=== PATIENT | female | born 1970 | race Caucasian/White ===

== ENCOUNTER → 2024-11-26 18:07 | Outpatient (REF) | payer OTHER, SELFPAY | LOC: WDC 18:07 | PROVIDERS: ATTENDING PHYSICIAN Advanced Practice Midwife; FAMILY PHYSICIAN Internal Medicine | DX: Z12.31 Encounter for screening mammogram for malignant neoplasm of breast (principal) | CPT/HCPCS: 77063; 77067 ==

== ENCOUNTER → 2024-12-04 10:34 | Outpatient (REF) | payer OTHER, SELFPAY | LOC: WDC 10:34 | PROVIDERS: ATTENDING PHYSICIAN Advanced Practice Midwife; FAMILY PHYSICIAN Internal Medicine | DX: R92.8 Other abnormal and inconclusive findings on diagnostic imaging of breast (principal) | CPT/HCPCS: 76642 ==